=== PATIENT | female | born 1975 | race Native Hawaiian/Other Pacific Islander ===

== ENCOUNTER 2017-05-24 22:07 | Emergency (ER) | payer SELFPAY ==
[~2017-05-24] VITALS: Ht 177.8 cm; Wt 125.0 kg
[2017-05-24 22:11] VITALS: BP 168/93; PULSE 80; RESP 18; TEMP 98.7; O2SAT 98
[2017-05-24] MEDS ORDERED: BENZ100 PO (22:21)
[2017-05-24] MEDS ORDERED: ZITHTAB PO (22:21)
--- NOTE | 2017-05-24 22:22 | PD ---
HPI Chief Complaint: Cold / Flu Symptoms Time Seen by Provider: 22:14 Travel History International Travel<30 days: No Contact w/Intl Traveler<30days: No Traveled to known affect area: No History of Present Illness HPI 41-year-old female presents to the emergency department for evaluation of cough , congestion, sore throat that has been ongoing for 1-1.5 weeks. Patient reports no chronic medical problems. She takes no prescribed medications. No fevers or chills. Patient reports chest pain only with coughing. No abdominal pain. No Nausea, vomiting, diarrhea. She reports that she has tried multiple [id number] cold medications without improvement. She is a nonsmoker. No other complaints. [facility] Past Medical History Medical History: Denies Significant Hx Diminished Hearing: No Immunizations Current: No Tetanus Vaccination: Unknown Influenza Vaccination: No ?: Not LMP: 05/24/17 Past Surgical History Section: Yes Social History Alcohol Use: No Tobacco Use: No Substance Use: No Allergies-Medications (Allergen,Severity, Reaction): Coded Allergies: No Known Allergies (Unverified , 05/24/17) Reported Meds & Prescriptions Reported Meds & Active Scripts Active No Active Prescriptions or Reported Medications Review of Systems Except as stated in HPI: all other systems reviewed are Neg Physical Exam Narrative GENERAL: Well-nourished, well-developed female patient, ambulatory. Afebrile. Vital signs stable. SKIN: Focused skin assessment warm/dry. HEAD: Normocephalic. Atraumatic. ENT: Mucosa pink and moist. No erythema or exudates. No uvular edema. No uvular , palatal, or tonsillar deviation. Airway patent. Nasal turbinates appear normal without nasal blood, purulent drainage or septal hematoma. Bilateral tympanic membranes are clear without erythema or perforation. EYES: No scleral icterus. No injection or drainage. NECK: Supple, trachea midline. No JVD or lymphadenopathy. CARDIOVASCULAR: Regular rate and rhythm without murmurs, gallops, or rubs. RESPIRATORY: Breath sounds equal bilaterally. No accessory muscle use. Lungs sounds are clear to auscultation. GASTROINTESTINAL: Abdomen soft, non-tender, nondistended. MUSCULOSKELETAL: No cyanosis, or edema. BACK: Nontender without obvious deformity. No CVA tenderness. Data Data Last Documented VS Vital Signs Date Time Temp Pulse Resp B/P (MAP) Pulse Ox O2 Delivery O2 Flow Rate FiO2 9/20/17 22:17 98 Room Air 05/24/17 22:11 98.7 80 18 168/93 (118) MDM Medical Decision Making Medical Screen Exam Complete: Yes Emergency Medical Condition: Yes Medical Record Reviewed: Yes Differential Diagnosis URI versus bronchitis versus pneumonia Narrative Course 41-year-old female presents to the emergency department for evaluation of cold symptoms and 1.5 days. Physical exam is reassuring. Patient was discharged prescription for azithromycin and Tessalon Perles. She is encouraged to follow- up with her primary care physician. She is return here for any acute worsening symptoms. Patient verbalizes agreement and understanding. The patient was discharged in stable condition with instructions, including return instructions and follow up instructions. Diagnosis Primary Impression: Upper respiratory infection Qualified Codes: J06.9 - Acute upper respiratory infection, unspecified Referrals: Primary Care Physician call for appointment Patient Instructions: General Instructions, Upper Respiratory Infection (ED) Additional Instructions: Take antibiotic as directed until gone. Take Tessalon Perles as instructed as needed for cough. Follow-up with your primary care physician. Return to the emergency department for any acute worsening of symptoms. Med/Other Pt SpecificInfo: Prescription(s) given Scripts Benzonatate (Tessalon Perles) 100 Mg Cap 200 MG PO TID Y for COUGH, #21 CAP 0 Refills Prov: Mandi Cao 05/24/17 Azithromycin (Zithromax Z-Francisco) 250 Mg Dspk 250 MG PO DIRECTED for Infection, #1 DSPK 0 Refills 500 MG (2 tabs) day 1, then 1 tab days 2-5. Prov: Mandi Cao 05/24/17 Disposition: 01 DISCHARGE HOME Condition: Stable Mandi Cao May 24, 2017 22:22
== END 2017-05-24 22:33 | disposition home or self-care (01) ==
LOC: PHEFT 22:07
DX: J06.9 Acute upper respiratory infection, unspecified (principal)
CPT/HCPCS: 99284